=== PATIENT | male | born 1975 | race Caucasian/White ===

== ENCOUNTER 2016-12-28 15:31 | Emergency (ER) | payer OTHER ==
[2016-12-28 16:30] VITALS: BP 124/93
--- NOTE | 2016-12-28 16:56 | UC ---
Skin Complaint HPI - HPI Summary HPI Summary: pt c/o tick bite to abdomen on abdomen, RUQ, mid-clavicular Pt attempted to remove and thinks the head is still under skin - History of Current Complaint Chief Complaint: [employer]kin Time Seen by Provider: 12/28/16 16:41 Stated Complaint: TICK Hx Obtained From: Patient Onset/Duration: Sudden Onset Timing: Constant Onset Severity: Mild Current Severity: Mild Location: Discrete Character: Redness Aggravating Factor(s): Nothing Alleviating Factor(s): Unknown Associated Signs & Symptoms: Positive: Negative Related History: Insect Bite/Sting - Allergy/Home Medications Allergies/Adverse Reactions: Allergies Allergy/AdvReac Type Severity Reaction Status Date / Time Metronidazole [From Flagyl] Allergy Intermediate Hives Verified 12/28/16 16:29 Review of Systems Constitutional: Negative Skin: Other - tick bite Eyes: Negative ENT: Negative Respiratory: Negative Cardiovascular: Negative Gastrointestinal: Negative Genitourinary: Negative Motor: Negative Neurovascular: Negative Musculoskeletal: Negative Neurological: Negative Psychological: Negative Is Patient Immunocompromised?: No All Other Systems Reviewed And Are Negative: Yes PMH/Surg Hx/FS Hx/Imm Hx Previously Healthy: Yes - Surgical History Surgical History: None - Family History Known Family History: Positive: Cardiac Disease - Social History Occupation: Employed Full-time Lives: With Family Alcohol Use: Occasionally Substance Use Type: None Smoking Status (MU): Never Smoked Tobacco Have You Smoked in the Last Year: No Physical Exam Triage Information Reviewed: Yes Appearance: Well-Appearing Vital Signs: Initial Vital Signs Temp 98.3 F 12/28/16 16:25 Pulse 79 12/28/16 16:25 Resp 16 12/28/16 16:25 BP 124/93 12/28/16 16:25 Pulse Ox 98 12/28/16 16:25 Vital Signs Reviewed: Yes Eye Exam: Normal ENT Exam: Normal Dental Exam: Normal Neck exam: Normal Respiratory: Positive: No respiratory distress Cardiovascular Exam: Normal Abdominal Exam: Normal Musculoskeletal Exam: Normal Neurological Exam: Normal Psychological Exam: Normal Skin Exam: Other - small eraser size erythematous area RUQ mid-clavicular area with pin head size darkened area. Course/Dx - Differential Diagnoses - Skin Complaint Differential Diagnoses: Tick Born Illness - Diagnoses Provider Diagnoses: tick bite Discharge - Discharge Plan Condition: Stable Disposition: HOME Prescriptions: DOXYcycline CAP(*) [DOXYcycline 100MG CAP(*)] 200 mg PO DAILY #2 cap Patient Education Materials: Tick Bite (ED) Referrals: Eloy Hunt DO [Medical Doctor] - If Needed
== END 2016-12-28 17:05 | disposition home or self-care (01) ==
LOC: UCCORT 15:31
DX: S30.861A Insect bite (nonvenomous) of abdominal wall, initial encounter (principal); W57.XXXA Bitten or stung by nonvenomous insect and other nonvenomous arthropods, initial encounter; Y93.9 Activity, unspecified; Y92.9 Unspecified place or not applicable; Z88.1 Allergy status to other antibiotic agents
CPT/HCPCS: 99212; G0463